=== PATIENT | male | born 1940 | race Caucasian/White ===

== ENCOUNTER 2017-03-12 22:30 | Emergency (ER) | payer MEDICARE, BC ==
[~2017-03-12] VITALS: Ht 175.3 cm; Wt 105.0 kg
[~2017-03-12 22:30] MED LIST: ASPIRIN LOW DOS81 M2 PO; ATROVENT HFA17 MCG IN; CALCIUM + D600 MG PO; FISH OIL1200 M1 PO; HYDROCHLOROT25 MG PO; LIPITOR20 MG OR; LORTAB 7.57.5 MG PO; MECLIZINE12.5 M1 PO; MOTRIN800 MG/TAB PO; MULTI FOR HIM; NITROGLYCERIN; PLAVIX75 MG PO; QUINAPRIL40 MG OR; SIMVASTATIN40 MG PO; SYMBICORT1 AE1 IN; TOPROL XL100 MG OR; TRICOR48 MG OR; VITAMIN B-12500 MCG; VITAMIN C1000 MG PO
[2017-03-12] MEDS ORDERED: DONEPEZIL5 MG PO (23:14)
[2017-03-12] MEDS ORDERED: TAMSULOSIN HCL0.4 MG PO (23:15)
--- NOTE | 2017-03-12 23:19 | NUR ---
BREATHING TREATMENT GIVEN. BREATHING TECH. FOR GOOD DEPOSITION TO THE LUNGS.
[2017-03-12 23:39] LABS: HEMATOCRIT 37.5 % (39.0-50.0); HEMOGLOBIN 12.3 g/dl (14.0-18.0); IMMATURE GRANULOCYTES 0.5 % (0.0-1.0); MEAN CELL VOLUME 89.5 fL CALC (80.0-100.0); MEAN CORPUSCULAR HGB 29.4 pG CALC (26.0-32.0); MEAN CORPUSCULAR HGB CONC 32.8 g/L CALC (32.0-36.0); NEUT# 5.91 thou/uL (1.82-7.42); RED BLOOD COUNT 4.19 mill/uL (4.70-6.10); RED CELL DISTRI WIDTH 13.7 % (11.5-15.5)
[2017-03-12 23:55] LABS: ALBUMIN 4.1 g/dL (3.2-5.0); ALKALINE PHOSPHATASE 100 u/l (38-126); ANION GAP 15 (6-22 (CALC)); BILIRUBIN, TOTAL 0.9 mg/dL (0.0-1.4); BUN 13 mg/dL (8-23); BUN/CREATININE RATIO 15 (12-20 (CALC)); CARBON DIOXIDE 25 mmol/l (22-30); CHLORIDE 108 mmol/l (95-108); CREATININE 0.9 mg/dL (0.7-1.3); GFR > 60 ML/MIN (>=60 (CALC)); GFR FOR AFR.AMER. > 60 ML/MIN (>=60 (CALC)); GLUCOSE 101 mg/dL (82-115); POTASSIUM 4.1 mmol/l (3.5-5.1); SGOT/AST 32 u/l (19-48); SGPT/ALT 58 u/l (11-66); SODIUM 143 mmol/l (137-146); TOTAL PROTEIN 6.7 g/dL (6.3-8.2)
[2017-03-13 00:03] LABS: MYOGLOBIN 61 ng/mL (0 - 121)
[2017-03-13] MEDS ORDERED: MEDDOSEPAK PO (01:03)
[2017-03-13] MEDS ORDERED: ZPAK PO (01:03)
[2017-03-13 01:11] VITALS: BP 150/61
== END 2017-03-13 01:11 | disposition home or self-care (01) ==
LOC: ED 22:30
PROVIDERS: Emergency Medicine
DX: J44.1 Chronic obstructive pulmonary disease with (acute) exacerbation (principal); J06.9 Acute upper respiratory infection, unspecified; R06.02 Shortness of breath; Z95.1 Presence of aortocoronary bypass graft

== ENCOUNTER 2017-05-16 12:21 | Emergency (ER) | payer MEDICARE ==
[~2017-05-16] VITALS: Ht 175.3 cm; Wt 108.0 kg
[~2017-05-16 12:21] MED LIST changes: +DONEPEZIL5 MG PO; +MEDDOSEPAK PO; +TAMSULOSIN HCL0.4 MG PO; -VITAMIN B-12500 MCG; +VITAMIN B-12500 MCG PO; +ZPAK PO
[2017-05-16] MEDS ORDERED: ATROVENT H17 MCG/ACT IN (12:51)
[2017-05-16] MEDS ORDERED: NITROSTAT0.4 MG SL (12:53)
[2017-05-16] MEDS ORDERED: OMEPRAZOLE20 M1 PO (12:57)
[2017-05-16] MEDS ORDERED: ELIQUIS2.5 MG (12:58)
[2017-05-16 13:17] VITALS: BP 139/68
== END 2017-05-16 13:15 | disposition home or self-care (01) ==
LOC: ED 12:21
DX: S90.415A Abrasion, left lesser toe(s), initial encounter (principal); X58.XXXA Exposure to other specified factors, initial encounter; Y93.9 Activity, unspecified; Y92.009 Unspecified place in unspecified non-institutional (private) residence as the place of occurrence of the external cause; Z79.82 Long term (current) use of aspirin

== ENCOUNTER 2018-07-07 11:38 | Observation (INO) | payer MEDICARE ==
[~2018-07-07] VITALS: Ht 175.3 cm; Wt 104.8 kg
[~2018-07-07 11:38] MED LIST changes: +ATROVENT H17 MCG/ACT IN; +COMBIVENT RESPIMAT IN; +DETROL LA4 MG PO; +ELIQUIS2.5 MG PO; +MULTIVITAMI9 PO; +NITROSTAT0.4 MG SL; +OMEPRAZOLE20 M1 PO; +SINGULAIR10 MG PO; +TOLTERODINE TART2 MG PO
[2018-07-07] MEDS ORDERED: MEMANTINE HCL5 MG PO (11:58)
[2018-07-07] MEDS ORDERED: DETROL LA4 MG PO (12:18)
[2018-07-07 12:26] LABS: GFR > 60 ML/MIN (>=60 (CALC)); GFR FOR AFR.AMER. > 60 ML/MIN (>=60 (CALC))
[2018-07-07 12:29] LABS: IMMATURE GRANULOCYTES 0.7 % (0.0-5.0); MEAN CORPUSCULAR HGB 31.9 pG CALC (26.0-32.0); NEUT# 0.52 thou/uL (1.82-7.42); RED BLOOD COUNT 2.85 mill/uL (4.70-6.10); RED CELL DISTRI WIDTH 17.8 % (11.5-15.5)
[2018-07-07 12:48] LABS: ANION GAP 17 (6-22 (CALC)); BUN 19 mg/dL (8-23); BUN/CREATININE RATIO 18 (12-20 (CALC)); CARBON DIOXIDE 25 mmol/l (22-30); CHLORIDE 104 mmol/l (95-108); CREATININE 1.1 mg/dL (0.7-1.3); GFR > 60 ML/MIN (>=60 (CALC)); GFR FOR AFR.AMER. > 60 ML/MIN (>=60 (CALC)); POTASSIUM 4.3 mmol/l (3.5-5.1); SODIUM 142 mmol/l (137-146)
[2018-07-07 13:05] LABS: HEMATOCRIT 26.8 % (39.0-50.0); HEMOGLOBIN 9.1 g/dl (14.0-18.0)
[2018-07-07 16:15] VITALS: BP 146/52
[2018-07-07 19:35] VITALS: BP 127/59
[2018-07-07 23:39] VITALS: BP 115/50
[2018-07-08 04:06] VITALS: BP 123/57
[2018-07-08 06:04] LABS: MEAN CELL VOLUME 92.7 fL CALC (80.0-100.0); MEAN CORPUSCULAR HGB 32.3 pG CALC (26.0-32.0); MEAN CORPUSCULAR HGB CONC 34.8 g/L CALC (32.0-36.0); RED BLOOD COUNT 2.48 mill/uL (4.70-6.10); RED CELL DISTRI WIDTH 17.4 % (11.5-15.5)
[2018-07-08 06:30] LABS: ALBUMIN 3.8 g/dL (3.2-5.0); ALKALINE PHOSPHATASE 79 u/l (38-126); AMYLASE 32 u/l (30-110); ANION GAP 14 (6-22 (CALC)); BILIRUBIN, TOTAL 0.8 mg/dL (0.0-1.4); BUN 20 mg/dL (8-23); BUN/CREATININE RATIO 21 (12-20 (CALC)); CARBON DIOXIDE 26 mmol/l (22-30); CHLORIDE 106 mmol/l (95-108); CREATININE 0.9 mg/dL (0.7-1.3); GFR > 60 ML/MIN (>=60 (CALC)); GFR FOR AFR.AMER. > 60 ML/MIN (>=60 (CALC)); LIPASE 56 u/l (23-300); MAGNESIUM 2.3 mg/dL (1.6-2.3); POTASSIUM 4.5 mmol/l (3.5-5.1); SGOT/AST 22 u/l (19-48); SODIUM 142 mmol/l (137-146); TOTAL PROTEIN 5.9 g/dL (6.3-8.2)
[2018-07-08 06:59] LABS: IMMATURE GRANULOCYTES 0.8 % (0.0-5.0); PLATELET COUNT 30 thou/uL (130-400)
[2018-07-08 07:00] LABS: MANUAL DIFFERENTIAL YES
[2018-07-08 07:02] LABS: BAND 1 % (0-8); HYPOCHROMIA FEW; IMMATURE CELLS 20 %; MICROCYTOSIS FEW; OVALOCYTES FEW; PLATELET ESTIMATE MARKED DECREASE
[2018-07-08 07:36] VITALS: BP 135/56
[2018-07-08 11:56] VITALS: BP 139/57
== END 2018-07-08 14:34 | disposition home or self-care (01) ==
LOC: ED 11:38 → ED-I 14:18 → ED 14:57 → MS2 14:58
PROVIDERS: Family Medicine; ADMIT Internal Medicine Nephrology; ATTEND Internal Medicine Nephrology
DX: R07.89 Other chest pain (principal); J44.9 Chronic obstructive pulmonary disease, unspecified; I10 Essential (primary) hypertension; I25.10 Atherosclerotic heart disease of native coronary artery without angina pectoris; I48.2 Chronic atrial fibrillation; K21.9 Gastro-esophageal reflux disease without esophagitis; E78.5 Hyperlipidemia, unspecified; I25.2 Old myocardial infarction; Z79.01 Long term (current) use of anticoagulants; Z90.2 Acquired absence of lung [part of]; Z85.118 Personal history of other malignant neoplasm of bronchus and lung; Z95.1 Presence of aortocoronary bypass graft; Z95.5 Presence of coronary angioplasty implant and graft; R06.02 Shortness of breath
CPT/HCPCS: Q9967

== ENCOUNTER → 2018-07-15 | Outpatient (REF) | payer MEDICARE ==
[~2018-07-15] MED LIST changes: +MEMANTINE HCL5 MG PO
[2018-07-15 16:04] LABS: HEMATOCRIT 23.5 % (39.0-50.0); MEAN CELL VOLUME 94.8 fL CALC (80.0-100.0); MEAN CORPUSCULAR HGB 32.3 pG CALC (26.0-32.0); RED BLOOD COUNT 2.48 mill/uL (4.70-6.10)
== END | disposition home or self-care (01) ==
LOC: LAB 14:58
PROVIDERS: ATTEND Nurse Practitioner
DX: Z12.12 Encounter for screening for malignant neoplasm of rectum (principal); D64.9 Anemia, unspecified; R53.83 Other fatigue

== ENCOUNTER 2018-08-03 13:32 | Inpatient (IN) | payer MEDICARE ==
[~2018-08-03] VITALS: Ht 175.3 cm; Wt 104.0 kg
[2018-08-03] VITALS (11 sets, daily range): BP systolic 107–142; BP diastolic 44–54
[2018-08-03 14:58] LABS: ANION GAP 16 (6-22 (CALC)); BUN 24 mg/dL (8-23); BUN/CREATININE RATIO 25 (12-20 (CALC)); CARBON DIOXIDE 22 mmol/l (22-30); CHLORIDE 104 mmol/l (95-108); GFR > 60 ML/MIN (>=60 (CALC)); GFR FOR AFR.AMER. > 60 ML/MIN (>=60 (CALC)); POTASSIUM 4.9 mmol/l (3.5-5.1); SODIUM 138 mmol/l (137-146)
[2018-08-03 14:59] LABS: HEMOGLOBIN 5.6 g/dl (14.0-18.0); IMMATURE GRANULOCYTES 3.2 % (0.0-5.0); MEAN CELL VOLUME 91.1 fL CALC (80.0-100.0); MEAN CORPUSCULAR HGB 31.1 pG CALC (26.0-32.0); MEAN CORPUSCULAR HGB CONC 34.1 g/L CALC (32.0-36.0); NEUT# 0.59 thou/uL (1.82-7.42); RED BLOOD COUNT 1.8 mill/uL (4.70-6.10); RED CELL DISTRI WIDTH 16.8 % (11.5-15.5)
[2018-08-03 15:00] LABS: HEMATOCRIT 16.4 % (39.0-50.0)
--- NOTE | 2018-08-03 16:08 | NUR ---
PT ARRIVED ON UNIT AT 1405 VIA WC DIRECT ADMIT, ALERT AND ORIENTED X 4, ORIENTED TO ROOM AND CALL GREEN, SETTLED IN BED. NO C/O PAIN BUT DID C/O OF BEING HUMGRY AND WAS FED LIGHT MEAL. VITAL SIGNS MEASURED AND RECORDED, ALL NEEDS ADDRESSED, SPOUSE AT BEDSIDE, WILL CONTINUE TO MONITOR.
--- NOTE | 2018-08-03 20:00 | NUR ---
PT. RECIEVING PRBC'S WELL; INFUSING @125MLS/HR; NO REACTIONS NOTED; VSS; ASSESSMENT COMPLETED; PT. SOB ON EXERTION, PER PT THIS IN NOT NEW; APPLIED O2 AT THIS TIME; UPDATED ON POC; VERBALIZES UNDERSTANDING; ENCOURAGED TO CALL FOR ANY NEEDS; CALL LIGHT IS IN REACH.
--- NOTE | 2018-08-03 21:40 | NUR ---
1ST UNIT OF PRBC'S FINISHED; VSS; NO REACTIONS NOTED; PT. TOLERATED WELL; UPDATED ON POC; ORDERED LASIX ADMINISTERED;
--- NOTE | 2018-08-03 22:10 | NUR ---
SECOND UNIT OF PRBC'S HUNG; NO REACTIONS NOTED; VSS; THIS COASTAL/[employer]ARB[employer] DEFENSE OFFICER IN AT BEDSIDE FOR INITIAL 15 MINUTES;
--- NOTE | 2018-08-03 23:00 | NUR ---
IV SITE TO RAC IS STARTING TO BECOME PAINFUL; NEW IV STARTED TO CROW X1 ATTEMPT AND PRBC'S MOVED TO NEW SITE; IV FROM RAC REMOVED AND CATHETER TIP INTACT;
[2018-08-04] VITALS (16 sets, daily range): BP systolic 104–144; BP diastolic 44–64
--- NOTE | 2018-08-04 00:58 | NUR ---
2ND UNIT OF PRBC'S FINISHED; NO REACTIONS NOTED; VSS; DENIES NEEDS/PAIN; IV SITE FLUSHED AND NEW BLOOD TUBING HUNG;
--- NOTE | 2018-08-04 01:10 | NUR ---
UNIT OF PLATELETES HUNG PER ORDER; VERIFIED BY 2 NURSES PER PROTOCAL; THIS PROGRAM DIRECTOR GROUP WORK AT BEDSIDE FOR INITIAL 15 MINUTES TO MONITOR;
--- NOTE | 2018-08-04 02:29 | NUR ---
PLATELETES FINISHED; VSS; NO REACTIONS NOTED; IV SITE PATENT AND FLUSHED WITH NS AND SL; DENIES NEEDS/PAIN; CALL LIGHT IS IN REACH; WILL CONTINUE TO MONITOR.
[2018-08-04 05:46] LABS: ALBUMIN 3.7 g/dL (3.2-5.0); ALKALINE PHOSPHATASE 83 u/l (38-126); AMYLASE 30 u/l (30-110); ANION GAP 15 (6-22 (CALC)); BILIRUBIN, TOTAL 1.6 mg/dL (0.0-1.4); BUN 26 mg/dL (8-23); BUN/CREATININE RATIO 25 (12-20 (CALC)); CARBON DIOXIDE 27 mmol/l (22-30); CHLORIDE 104 mmol/l (95-108); CREATININE 1.1 mg/dL (0.7-1.3); GFR FOR AFR.AMER. > 60 ML/MIN (>=60 (CALC)); LIPASE 51 u/l (23-300); MAGNESIUM 2.2 mg/dL (1.6-2.3); POTASSIUM 4.4 mmol/l (3.5-5.1); SGOT/AST 18 u/l (19-48); SODIUM 141 mmol/l (137-146); TOTAL PROTEIN 5.7 g/dL (6.3-8.2)
[2018-08-04 05:59] LABS: GFR > 60 ML/MIN (>=60 (CALC))
--- NOTE | 2018-08-04 06:41 | NUR ---
NOTIFIED DR. FARAH OF CRITICAL LABS THIS AM; NO NEW ORDERS RECEIEVED.
[2018-08-04 06:46] LABS: HEMATOCRIT 20.4 % (39.0-50.0); IMMATURE GRANULOCYTES 2.2 % (0.0-5.0); MEAN CELL VOLUME 91.5 fL CALC (80.0-100.0); MEAN CORPUSCULAR HGB 31.4 pG CALC (26.0-32.0); MEAN CORPUSCULAR HGB CONC 34.3 g/L CALC (32.0-36.0); RED BLOOD COUNT 2.23 mill/uL (4.70-6.10); RED CELL DISTRI WIDTH 15.3 % (11.5-15.5)
[2018-08-04 06:47] LABS: MANUAL DIFFERENTIAL YES; MICROCYTOSIS MARKED; PLATELET COUNT 10 thou/uL (130-400)
[2018-08-04 06:48] LABS: ANISOCYTOSIS MODERATE; OVALOCYTES MODERATE; PLATELET ESTIMATE MARKED DECREASE; TARGET CELLS FEW
--- NOTE | 2018-08-04 07:15 | NUR ---
PT REPORT RECIEVED FROM GABBY BARNES. PT RESTING. NO S/S OF DISTRESS. CALL LIGHT IN REACH. WILL CONTINUE TO MONITOR.
--- NOTE | 2018-08-04 08:25 | NUR ---
PT A/O X3. SPEECH IS CLEAR. RESP EVEN AND UNLABORED. LUNG SOUNDS CLEAR. TELE IN PLACE. BOWEL SOUNDS ACTIVE X4. STRONG RADIAL AND PEDAL PULSES. #22 CROW SL. FLUSHED AND PATENT. SITE APPEARS HEALTHY. PT DENIES ANY PAIN OR NEEDS. POC DISCUSSED. SAFETY PRECAUTIONS IN PLACE. REVERSE ISOLATION. CALL LIGHT IN REACH. WILL CONTINUE TO MONITOR.
--- NOTE | 2018-08-04 11:32 | NUR ---
PT WATCHING TELEVISION. NO C/O PAIN OR NEEDS. CALL LIGHT IN REACH. WILL CONTINUE TO MONITOR
--- NOTE | 2018-08-04 15:24 | NUR ---
FIRST UNIT OF PRBC STARTED. PT TOLERATING WELL. #22 CROW IV SITE APPEARS HEALTHY. WILL CONTINUE TO MONITOR.
--- NOTE | 2018-08-04 16:00 | NUR ---
PT RESTING IN BED. NO C/O PAIN OR NEEDS. CALL LIGHT IN REACH. WILL CONTINUE TO MONITOR
--- NOTE | 2018-08-04 19:00 | NUR ---
RECEIVED REPORT FROM NURSE JESSA, PATIENT HOOKED TO 1ST UNIT OF PRBC INFUSING WELL ON LEFT ARM, NO ALLERGIC REACTION NOTED AT THIS TIME.
--- NOTE | 2018-08-04 21:13 | NUR ---
2ND UNIT OF PRBC STARTED VERIFIED BY ANOTHER RN, PRE V/S TAKEN AND RECORDED. STAYED IN PT'S ROOM FOR THE FIRST 15 MINS.
--- NOTE | 2018-08-04 21:27 | NUR ---
NO SIGNS OF ALLERGIC REACTION NOTED FOR THE FIRST 15 MINS, V/S FOLLWS: BP 133/60 P 57 R 20 TEMP 97.3, O2 STA 99% AT 2LPM.
--- NOTE | 2018-08-04 23:36 | NUR ---
2nd unit of prbc finished, post v/s taken and recorded, pt c/o of itchiness on the forehead, and left arm, no rashes noted, prn benadyl given.
[2018-08-05] VITALS (13 sets, daily range): BP systolic 95–151; BP diastolic 51–65
--- NOTE | 2018-08-05 00:50 | NUR ---
UNABLE TO HUNG PLATELET AT THIS TIME, AVAILABLE PLATELET , WILL NEED TO REORDER NEW PLATELET SPOKE TO UMA FROM LAB.
--- NOTE | 2018-08-05 03:38 | NUR ---
UNIT OF PLATELET HUNG AT 0335 PRE V/S TAKEN AND RECORDED, NO ALLERGIC REACTION NOTED AT THIS TIME, PT CURRENTLY SLEEPING WITH EYES CLOSED NO DISCOMFORTS AT THIS TIME.
--- NOTE | 2018-08-05 03:58 | NUR ---
STAYED WITH THE PATIENT FOR TGHE FIRST 15 MINS NO REACTIONS NOTED AT THIS TIME.
--- NOTE | 2018-08-05 04:41 | NUR ---
PATIENT RESTING IN BED, PLATELETS STILL INFUSING NO ALLERGIC REACTIONS NOTED AT THIS TIME, CALL LIGHT AT REACH.
[2018-08-05 05:16] LABS: ALBUMIN 3.7 g/dL (3.2-5.0); ALKALINE PHOSPHATASE 97 u/l (38-126); ANION GAP 15 (6-22 (CALC)); BILIRUBIN, TOTAL 1.6 mg/dL (0.0-1.4); BUN 26 mg/dL (8-23); BUN/CREATININE RATIO 28 (12-20 (CALC)); CARBON DIOXIDE 27 mmol/l (22-30); CHLORIDE 103 mmol/l (95-108); CREATININE 0.9 mg/dL (0.7-1.3); GFR > 60 ML/MIN (>=60 (CALC)); GFR FOR AFR.AMER. > 60 ML/MIN (>=60 (CALC)); MAGNESIUM 2.3 mg/dL (1.6-2.3); POTASSIUM 4.3 mmol/l (3.5-5.1); SGOT/AST 19 u/l (19-48); SODIUM 141 mmol/l (137-146)
[2018-08-05 05:32] LABS: HEMATOCRIT 23.9 % (39.0-50.0); HEMOGLOBIN 8.2 g/dl (14.0-18.0); IMMATURE GRANULOCYTES 2.1 % (0.0-5.0); MANUAL DIFFERENTIAL YES; MEAN CELL VOLUME 88.2 fL CALC (80.0-100.0); MEAN CORPUSCULAR HGB 30.3 pG CALC (26.0-32.0); MEAN CORPUSCULAR HGB CONC 34.3 g/L CALC (32.0-36.0); PLATELET COUNT 12 thou/uL (130-400); RED BLOOD COUNT 2.71 mill/uL (4.70-6.10); RED CELL DISTRI WIDTH 15.1 % (11.5-15.5)
[2018-08-05 05:37] LABS: BAND 1 % (0-8)
[2018-08-05 05:38] LABS: ANISOCYTOSIS FEW; MICROCYTOSIS MODERATE; OVALOCYTES MODERATE; TEAR DROP CELLS FEW
[2018-08-05 05:39] LABS: PLATELET ESTIMATE MARKED DECREASE
--- NOTE | 2018-08-05 06:24 | NUR ---
RECEIVED A PHONE CALL FROM LAB ABOUT CRITICALLY LOW WBC 1.4 AND PLATELET 12, CALLED DR. FARAH, NO NEW ORDERS MADE AT THIS TIME.
--- NOTE | 2018-08-05 07:28 | NUR ---
REPORT RECEIVED FROM JADE . PT IS SITTING IN THE SIDE OF THE BED WITH NO S/S OF DISTRESS NOTED. CALL LIGHT IN REACH.
--- NOTE | 2018-08-05 08:30 | NUR ---
ASSESSMENT DONE. PT IS A&O X3. PT DENIES ANY PAIN AT THIS TIME. TELE IN PLACE. PT DENIES ANY NEEDS AT THIS TIME. CALL LIGHT IN REACH.
--- NOTE | 2018-08-05 11:01 | NUR ---
DR. MILTON AT BEDSIDE TO ASSESS PT AND DISCUSS POC WITH PT. CALL LIGHT IN REACH.
--- NOTE | 2018-08-05 16:10 | NUR ---
PT IS RESTING IN BED. PT DENIES ANY NEEDS AT THIS TIME. CALL LIGHT IN REACH.
--- NOTE | 2018-08-05 18:22 | NUR ---
EXPLAIN TO PT S/S OF REACTION. PHERESIS PLATELETS STARTED PER ORDER. PT RESTING IN HIS LEFT SIDE AT THIS TIME. CALL LIGHT IN REACH.
--- NOTE | 2018-08-05 19:30 | NUR ---
PATIENT RESTING IN BED AT THIS TIME AWAKE ALERT AND ORIENTEDX3. NEUTROPENIC PRECAUTIONS MAINTAINED. PATIENT IS SLIGHTLY [place]. PATIENT WITH TELE MONITOR IN PLACE. IV SITE TO RIGHT UPPER ARM INTACT AND APPEARS HEALTHY AT THIS TIME. SAFETY PRECAUTIONS REINFORCED. CALL LIGHT IN REACH. WILL CONT TO MONITOR.
[2018-08-05 21:21] LABS: HEMATOCRIT 23.3 % (39.0-50.0); MEAN CELL VOLUME 88.3 fL CALC (80.0-100.0); MEAN CORPUSCULAR HGB 30.3 pG CALC (26.0-32.0); MEAN CORPUSCULAR HGB CONC 34.3 g/L CALC (32.0-36.0); RED BLOOD COUNT 2.64 mill/uL (4.70-6.10); RED CELL DISTRI WIDTH 14.7 % (11.5-15.5)
[2018-08-05 21:23] LABS: IMMATURE GRANULOCYTES 1.6 % (0.0-5.0); NEUT# 0.65 thou/uL (1.82-7.42)
--- NOTE | 2018-08-06 | NUR ---
PATIENT POSITIONED ON HIS RIGHT SIDE WITH EYES CLOSED. APPEARS SLEEPING-RESP ARE EVEN AND UNLABORED. NEUTROPENIC PRECAUTIONS MAINTAINED. TELE MONITOR IN PLACE. CALL LIGHT IN REACH. WILL CONT TO MONITOR.
[2018-08-06 03:49] VITALS: BP 106/48
[2018-08-06 05:46] LABS: ALBUMIN 3.7 g/dL (3.2-5.0); ALKALINE PHOSPHATASE 100 u/l (38-126); ANION GAP 13 (6-22 (CALC)); BILIRUBIN, TOTAL 1.4 mg/dL (0.0-1.4); BUN 23 mg/dL (8-23); BUN/CREATININE RATIO 25 (12-20 (CALC)); CARBON DIOXIDE 27 mmol/l (22-30); CHLORIDE 106 mmol/l (95-108); CREATININE 0.9 mg/dL (0.7-1.3); GFR > 60 ML/MIN (>=60 (CALC)); GFR FOR AFR.AMER. > 60 ML/MIN (>=60 (CALC)); MAGNESIUM 2.3 mg/dL (1.6-2.3); POTASSIUM 4.6 mmol/l (3.5-5.1); SGOT/AST 18 u/l (19-48); SODIUM 141 mmol/l (137-146); TOTAL PROTEIN 5.8 g/dL (6.3-8.2)
[2018-08-06 05:49] LABS: HEMATOCRIT 24.7 % (39.0-50.0); HEMOGLOBIN 8.4 g/dl (14.0-18.0); MEAN CELL VOLUME 89.2 fL CALC (80.0-100.0); MEAN CORPUSCULAR HGB 30.3 pG CALC (26.0-32.0); PLATELET COUNT 13 thou/uL (130-400); RED BLOOD COUNT 2.77 mill/uL (4.70-6.10); RED CELL DISTRI WIDTH 14.6 % (11.5-15.5)
--- NOTE | 2018-08-06 05:50 | NUR ---
RECIEVED LAB RESULTS FROM NIRMALA IN THE LAB. AWARE OF TRENDS. PATIENT RESTING IN BED-APPEARS SLEEPING AT THIS TIME. TELE MONITOR IN PLACE. O2 VIA N BRIANNE CANNULA IN PLACE. NEUTRApenic precautions MAINTAINED. CALL LIGHT IN REACH. WILL CONT TO MONITOR.
[2018-08-06 05:52] LABS: MANUAL DIFFERENTIAL YES
[2018-08-06 06:19] LABS: IMMATURE CELLS 1 %
[2018-08-06 06:21] LABS: HYPOCHROMIA FEW; MICROCYTOSIS MODERATE; PLATELET ESTIMATE MARKED DECREASE; POIKILOCYTOSIS FEW
--- NOTE | 2018-08-06 07:40 | NUR ---
ED CALLED STATED PT PULSE PER TELE READING 30-41. PT IS SITTING IN THE SIDE OF THE BED WITH NO S/S OF DISTRESS NOTED. VS OBTAIN P-62 BP 127/57. ASSESSMENT DONE. PT IS A&O X3. PT DENIES ANY PAIN AT THIS TIME. TELE IN PLACE. 02 AT 2L VIA LA. PT DENIES ANY NEEDS AT THIS TIME. CALL LIGHT IN REACH.
[2018-08-06 08:00] VITALS: BP 127/57
--- NOTE | 2018-08-06 09:58 | NUR ---
ED CALLED STATED PT IN A.FIB PER TELE . ASKED PT IF HE HAD A HX OF A.FIB. PT STATED NO. EKG ORDER. CALLED DR. MILTON RE: PT PULSE WAS READING IN THE 30- AND WAS RECHECK READING 50-62. ALSO THAT ED CALLED THAT PT IS NOW READING A.FIB. TOLD I ORDER A EKG. NO NEW ORDERS RECEIVED AT THIS TIME.
[2018-08-06 11:48] VITALS: BP 130/65
--- NOTE | 2018-08-06 12:30 | NUR ---
PT IS SITTING IN RECLINER WITH NO S/S OF DISTRESS NOTED. IN ROOM. PT DENIES ANY NEEDS AT THIS TIME. CALL LIGHT IN REACH.
--- NOTE | 2018-08-06 13:15 | NUR ---
DR. MILTON AT BEDSIDE TO ASSESS PT. PER SHE STATED THAT PT DOES HAVE A HX OF A.FIB.
[2018-08-06 15:39] VITALS: BP 128/63
--- NOTE | 2018-08-06 16:03 | NUR ---
PT IS RESTING IN BED WITH NO S/S OF DISTRESS NOTED. PT DENIES ANY NEEDS AT THIS TIME. CALL LIGHT IN REACH.
[2018-08-06] MEDS ORDERED: TRELEGY ELLIPTA1 AER IN (16:22)
[2018-08-06] MEDS ORDERED: ALBUTEROL SUL0.083 % NEB (16:23)
[2018-08-06] MEDS ORDERED: ZINC50 MG PO (16:24)
[2018-08-06] MEDS ORDERED: SUPER B COM2 PO (16:25)
[2018-08-06] MEDS ORDERED: D31000 UNIT PO (16:25)
[2018-08-06] MEDS ORDERED: ZYLOPRIM100 MG PO (16:26)
[2018-08-06] MEDS ORDERED: VENCLEXTA10 MG (16:27)
[2018-08-06] MEDS ORDERED: ONDANSETRON ODT8 MG PO (16:27)
[2018-08-06 19:25] VITALS: BP 119/64
--- NOTE | 2018-08-06 19:30 | NUR ---
PATIENT RESTING IN BED AT THIS TIME-AWAKE ALERT AND ORIENTEDX3-SLIGHTLY [place]. NEUTROPENIC PRECAUTIONS MAINTAINED. PATENT WITH TELE MONITOR IN PLACE. IV SITE TO LEFT UPPER ARM INTACT AND APPEARS HELATHY AT THIS TIME. O2 VIA NASAL CANNULA IN PLACE. SAFETY PRECAUTIONS REINFORCED. CALL LIGHT IN REACH. WILL CONT TO MONITOR.
--- NOTE | 2018-08-07 00:20 | NUR ---
PATIENT RESTING IN BED WITH O2 VIA NASAL CANNULA IN PLACE-POSITIONED ON LEFT SIDE WITH EYES CLOSED. RESP ARE EVEN AND UNLABORED. TELE MONITOR IN PLACE. NEUTROPENIC PRECAUTIONS REINFORCED. CALL LIGHT IN REACH. WILL CONT TO MONITOR.
[2018-08-07 00:29] VITALS: BP 105/54
[2018-08-07 04:03] VITALS: BP 120/54
--- NOTE | 2018-08-07 05:15 | NUR ---
PATIENT CALLED FOR ASSIST. STATES THAT HE HAS A BLOODY NOSE. RESPONDED TO ROOM TO FIND THE PATIENT WITH BLOODY NOSE FROM LEFT NARE. WHEN ASKED WHAT HAPPENED PATIENT STATES THAT HE BLEW HIS NOSE HARD AND IT STARTED TO BLEED. PATIENT EDUCATED REGUARDING LOW PLATLET COUNTS SECONDARY TO CHEMO AND THE INCREASE RISK OF BLEEDING DUE TO LOW CPOUNTS. COLD PACKS APPLIED WO LEFT CHEEK AND NOSE. PATIENT SITTING UP IN BED AT THIS TIME. CALL LIGHT IN REACH. WILL CONT TO MONITOR.
[2018-08-07 05:59] LABS: ALBUMIN 3.6 g/dL (3.2-5.0); ALKALINE PHOSPHATASE 101 u/l (38-126); ANION GAP 13 (6-22 (CALC)); BILIRUBIN, TOTAL 1.6 mg/dL (0.0-1.4); BUN 26 mg/dL (8-23); BUN/CREATININE RATIO 27 (12-20 (CALC)); CARBON DIOXIDE 28 mmol/l (22-30); CHLORIDE 104 mmol/l (95-108); GFR > 60 ML/MIN (>=60 (CALC)); GFR FOR AFR.AMER. > 60 ML/MIN (>=60 (CALC)); MAGNESIUM 2.3 mg/dL (1.6-2.3); POTASSIUM 4.4 mmol/l (3.5-5.1); SGOT/AST 17 u/l (19-48); SODIUM 141 mmol/l (137-146); TOTAL PROTEIN 5.8 g/dL (6.3-8.2)
[2018-08-07 06:52] LABS: HEMATOCRIT 22.6 % (39.0-50.0); HEMOGLOBIN 7.8 g/dl (14.0-18.0); IMMATURE GRANULOCYTES 0.6 % (0.0-5.0); MEAN CELL VOLUME 89.3 fL CALC (80.0-100.0); MEAN CORPUSCULAR HGB 30.8 pG CALC (26.0-32.0); MEAN CORPUSCULAR HGB CONC 34.5 g/L CALC (32.0-36.0); PLATELET COUNT 9 thou/uL (130-400); RED BLOOD COUNT 2.53 mill/uL (4.70-6.10); RED CELL DISTRI WIDTH 14.3 % (11.5-15.5)
[2018-08-07 06:53] LABS: BAND 2 % (0-8); MANUAL DIFFERENTIAL YES
[2018-08-07 06:54] LABS: ANISOCYTOSIS FEW; HYPOCHROMIA FEW; IMMATURE CELLS 1 %; MICROCYTOSIS FEW; PLATELET ESTIMATE MARKED DECREASE
--- NOTE | 2018-08-07 07:20 | NUR ---
PT REPORT RECIEVED FROM GABBY ROBIN. PT RESTING IN BED. GUAZE TO PT NOSTRIL IN PLACE. GUAZE ALMOST SATURATED W/ BLOODY DRAINAGE. REINFORCE W/ PRESSURE APPLIED. CALL LIGHT IN REACH. WILL CONTINUE TO MONITOR.
[2018-08-07 08:18] VITALS: BP 157/63
--- NOTE | 2018-08-07 08:18 | NUR ---
UPON ENTERING ROOM, PT UP AT SIDE OF BED EATING BREAKFAST. PT REMOVED GUAZE FROM NOSE. BLEEDING APPEARS LESS AT THIS TIME BUT NEW GAUZE, PRESSURE AND ICE PACK APPLIED. ENCOURAGED PT TO HAVE CONSTANT PRESSURE ON NOSE AND LEAVE GUAZE IN PLACE. PT STATES UNDERSTANDING. PT A/O X3. SPEECH IS CLEAR. RESP EVEN AND UNLABORED. LUNG SOUNDS CLEAR. BOWEL SOUNDS ACTIVE X4. STRONG RADIAL AND PEDAL PULSES. #22 CROW SL. FLUSHED AND PATENT. SITE APPEARS HEALTHY. PT DENIES ANY PAIN OR NEEDS. POC DISCUSSED. SAFETY PRECAUTIONS IN PLACE. CALL LIGHT IN REACH. WILL CONTINUE TO MONITOR.
--- NOTE | 2018-08-07 10:58 | NUR ---
PT HAVING EXCESS BLEEDING FROM NOSE; SEVERAL BLOOD CLOTS NOTED. NEW GUAZE AND ICE APPLIED TO PT. MD CALLED BY GABBY JERRY. STATES HE WILL BE OVER TO SEE PT. WILL CONTINUE TO MONITOR.
[2018-08-07 11:00] VITALS: BP 138/95
--- NOTE | 2018-08-07 11:19 | NUR ---
PT BLEEDING PROFUSELY FROM LEFT NOSTRIL SINCE NURSE EVALUATED AT BEGINNIG OF SHIFT, SHE TRIED ALL INTERVENTIONS SHE KNOWS BUT BELLEING HAS NOT SUBSIDED OR EVEN SLOWED. DR MILTON CONTACTED IN ICU APPROXIMATELY 45-50 MINUTES AGO AND RESPONDED HE WOULD BE RIGHT THERE, HE JUST ARRIVED ON UNIT @ 1117, WHEN ASKED BY STOCK LAYER IF HE WILL SEE 280 FIRST HE SHRUGGED OFF QUESTION STATING HE WILL DO WHAT HE HAS TO DO FIRST. I APPROACHED HIM IN DICTATION ROOM AND EXPLAINED THE SEVERITY OF PT'S CONDITION TO HEM. HE TOLE ME TO JUST STOP THE BLEEDING, I EXPLAINED ALL THAT NURSE HAS BEEN DOING SINCE SHE CAME ON THIS AM AND INQUIRED OF HIM WHAT MORE ARE WE SUPPOSED TO DO? I ALSO SUGGESTED TO HIM TO SEE PT ARNULFO SO HE CAN OBSERVE WHAT WAS REPORTED TO HIM.
--- NOTE | 2018-08-07 11:25 | NUR ---
IN TO TALK W/ PT. APPLIED AEROSOL APPLICATOR AND GUCODY- CONSTANT PRESSURE TO PT NOSE. ORDERS FOR TRANSFER TO [facility]. STAT ORDER FOR PLATELETS IN PLACE. WILL CONTINUE TO MONITOR.
--- NOTE | 2018-08-07 12:20 | NUR ---
BLEEDING TO LT NOSTRIL HAS DECREASED SIGNIFICANTLY. PT SITTING IN RECLINER TALKING W/ . NO C/O AT THIS TIME. TELE IN PLACE. CALL LIGHT IN REACH. WILL CONTINUE TO MONITOR.
--- NOTE | 2018-08-07 13:38 | NUR ---
REPORT GIVEN TO GABBY HOROWITZ AT [facility]
--- NOTE | 2018-08-07 14:29 | NUR ---
[facility] UP TO TRANSPORT PT TO [facility]
--- NOTE | 2018-08-07 14:30 | NUR ---
Discharge instructions given. Patient verbalizes understanding of same. Discharged in stable condition via Medical Transport to *Other with *Other. All belongings sent with pt.
== END 2018-08-07 14:30 | disposition short-term general hospital (02) | DRG 809 ==
LOC: MS2 13:32
PROVIDERS: Internal Medicine; ADMIT Internal Medicine; ATTEND Internal Medicine Nephrology
PROC: 30233N1 Transfusion of Nonautologous Red Blood Cells into Peripheral Vein, Percutaneous Approach (ICD-10-PCS; principal; 2018-08-03)
PROC: 30233N1 Transfusion of Nonautologous Red Blood Cells into Peripheral Vein, Percutaneous Approach (ICD-10-PCS; 2018-08-03)
PROC: 30233N1 Transfusion of Nonautologous Red Blood Cells into Peripheral Vein, Percutaneous Approach (ICD-10-PCS; 2018-08-04)
PROC: 30233N1 Transfusion of Nonautologous Red Blood Cells into Peripheral Vein, Percutaneous Approach (ICD-10-PCS; 2018-08-04)
PROC: 30233R1 Transfusion of Nonautologous Platelets into Peripheral Vein, Percutaneous Approach (ICD-10-PCS; 2018-08-04)
PROC: 30233R1 Transfusion of Nonautologous Platelets into Peripheral Vein, Percutaneous Approach (ICD-10-PCS; 2018-08-05)
PROC: 30233R1 Transfusion of Nonautologous Platelets into Peripheral Vein, Percutaneous Approach (ICD-10-PCS; 2018-08-05)
PROC: 093K7ZZ Control Bleeding in Nasal Mucosa and Soft Tissue, Via Natural or Artificial Opening (ICD-10-PCS; 2018-08-07)
DX: D61.810 Antineoplastic chemotherapy induced pancytopenia (principal); C95.00 Acute leukemia of unspecified cell type not having achieved remission; T45.1X5A Adverse effect of antineoplastic and immunosuppressive drugs, initial encounter; J44.9 Chronic obstructive pulmonary disease, unspecified; I10 Essential (primary) hypertension; K21.9 Gastro-esophageal reflux disease without esophagitis; M19.90 Unspecified osteoarthritis, unspecified site; I25.10 Atherosclerotic heart disease of native coronary artery without angina pectoris; Z95.5 Presence of coronary angioplasty implant and graft; Z85.118 Personal history of other malignant neoplasm of bronchus and lung; Z90.2 Acquired absence of lung [part of]; I49.5 Sick sinus syndrome; I48.0 Paroxysmal atrial fibrillation; R04.0 Epistaxis
CPT/HCPCS: G0378; P9016; P9034

== ENCOUNTER 2018-10-05 10:09 | Emergency (ER) | payer MEDICARE ==
[~2018-10-05] VITALS: Ht 175.3 cm; Wt 105.0 kg
[~2018-10-05 10:09] MED LIST changes: +ALBUTEROL SUL0.083 % NEB; +D31000 UNIT PO; +ONDANSETRON ODT8 MG PO; +SUPER B COM2 PO; +TRELEGY ELLIPTA1 AER IN; +VENCLEXTA10 MG; +ZINC50 MG PO; +ZYLOPRIM100 MG PO
[2018-10-05 11:09] LABS: HEMATOCRIT 26.1 % (39.0-50.0); HEMOGLOBIN 8.6 g/dl (14.0-18.0); IMMATURE GRANULOCYTES 8.9 % (0.0-5.0); MEAN CELL VOLUME 94.6 fL CALC (80.0-100.0); MEAN CORPUSCULAR HGB 31.2 pG CALC (26.0-32.0); PLATELET COUNT 177 thou/uL (130-400); RED BLOOD COUNT 2.76 mill/uL (4.70-6.10); RED CELL DISTRI WIDTH 18.4 % (11.5-15.5)
[2018-10-05 11:23] LABS: ALBUMIN 3.6 g/dL (3.2-5.0); ALKALINE PHOSPHATASE 100 u/l (38-126); ANION GAP 14 (6-22 (CALC)); BUN 15 mg/dL (8-23); BUN/CREATININE RATIO 19 (12-20 (CALC)); CARBON DIOXIDE 24 mmol/l (22-30); CHLORIDE 102 mmol/l (95-108); CREATININE 0.8 mg/dL (0.7-1.3); GFR > 60 ML/MIN (>=60 (CALC)); GFR FOR AFR.AMER. > 60 ML/MIN (>=60 (CALC)); POTASSIUM 3.7 mmol/l (3.5-5.1); SGOT/AST 20 u/l (19-48); SODIUM 136 mmol/l (137-146)
[2018-10-05 11:40] LABS: BAND 10 % (0-8); MANUAL DIFFERENTIAL YES
[2018-10-05 13:19] VITALS: BP 136/82
== END 2018-10-05 13:28 ==
LOC: ED 10:09
PROVIDERS: Emergency Medicine
DX: R53.1 Weakness (principal); R42 Dizziness and giddiness; R50.9 Fever, unspecified; J18.9 Pneumonia, unspecified organism; D70.9 Neutropenia, unspecified; Z95.1 Presence of aortocoronary bypass graft; Z95.5 Presence of coronary angioplasty implant and graft

== ENCOUNTER 2018-10-11 11:03 | Inpatient (IN) | payer MEDICARE ==
[~2018-10-11] VITALS: Ht 175.3 cm; Wt 85.0 kg
[2018-10-11 12:18] LABS: HEMATOCRIT 24.9 % (39.0-50.0); HEMOGLOBIN 8.1 g/dl (14.0-18.0); IMMATURE GRANULOCYTES 1.8 % (0.0-5.0); MEAN CELL VOLUME 97.3 fL CALC (80.0-100.0); MEAN CORPUSCULAR HGB 31.6 pG CALC (26.0-32.0); MEAN CORPUSCULAR HGB CONC 32.5 g/L CALC (32.0-36.0); NEUT# 1.14 thou/uL (1.82-7.42); RED BLOOD COUNT 2.56 mill/uL (4.70-6.10); RED CELL DISTRI WIDTH 17.7 % (11.5-15.5)
[2018-10-11 12:33] LABS: ACT PARTIAL THROMBO TIME 40.9 SECONDS (20.0-32.5); ALBUMIN 3.8 g/dL (3.2-5.0); ALKALINE PHOSPHATASE 98 u/l (38-126); ANION GAP 14 (6-22 (CALC)); BUN 12 mg/dL (8-23); BUN/CREATININE RATIO 16 (12-20 (CALC)); CARBON DIOXIDE 25 mmol/l (22-30); CHLORIDE 106 mmol/l (95-108); CREATININE 0.8 mg/dL (0.7-1.3); GFR > 60 ML/MIN (>=60 (CALC)); GFR FOR AFR.AMER. > 60 ML/MIN (>=60 (CALC)); INTERNATIONAL NORMALIZED RATIO 1.1 RATIO (0.7-1.3); LIPASE 31 u/l (23-300); POTASSIUM 3.8 mmol/l (3.5-5.1); PROTHROMBIN TIME 11.1 SECONDS (9.0-12.5); SGOT/AST 22 u/l (19-48); SODIUM 141 mmol/l (137-146); TOTAL PROTEIN 6.7 g/dL (6.3-8.2)
[2018-10-11 12:35] LABS: BILIRUBIN, TOTAL 0.9 mg/dL (0.0-1.4)
[2018-10-11 12:45] LABS: MYOGLOBIN 40 ng/mL (0 - 121)
[2018-10-11 14:58] LABS: URINE BILIRUBIN - DIPSTICK NEGATIVE (NEGATIVE); URINE BLOOD DIPSTICK NEGATIVE (NEGATIVE); URINE COLOR YELLOW; URINE GLUCOSE - DIPSTICK NEGATIVE (NEGATIVE); URINE KETONE NEGATIVE (NEGATIVE); URINE LEUK ESTERASE NEGATIVE (NEGATIVE); URINE NITRITE - DIPSTICK NEGATIVE (Negative); URINE PROTEIN - DIPSTICK TRACE mg/dL (NEG-TRACE); URINE UROBILINOGEN - DIPSTICK 0.2 E.U./dL (0.2)
[2018-10-11 17:55] VITALS: BP 191/70
[2018-10-11 21:52] VITALS: BP 156/72
[2018-10-11 23:45] VITALS: BP 143/57
[2018-10-11 23:49] VITALS: BP 143/57
[2018-10-12] VITALS (15 sets, daily range): BP systolic 105–168; BP diastolic 48–64
[2018-10-12 05:21] LABS: HEMATOCRIT 23.2 % (39.0-50.0); HEMOGLOBIN 7.5 g/dl (14.0-18.0); IMMATURE GRANULOCYTES 1.8 % (0.0-5.0); MEAN CELL VOLUME 95.9 fL CALC (80.0-100.0); MEAN CORPUSCULAR HGB CONC 32.3 g/L CALC (32.0-36.0); NEUT# 1.01 thou/uL (1.82-7.42); RED BLOOD COUNT 2.42 mill/uL (4.70-6.10); RED CELL DISTRI WIDTH 17.4 % (11.5-15.5)
[2018-10-12 05:44] LABS: ALBUMIN 3.1 g/dL (3.2-5.0); ALKALINE PHOSPHATASE 87 u/l (38-126); AMYLASE < 30 u/l (30-110); ANION GAP 12 (6-22 (CALC)); BILIRUBIN, TOTAL 0.7 mg/dL (0.0-1.4); BUN 8 mg/dL (8-23); BUN/CREATININE RATIO 12 (12-20 (CALC)); CARBON DIOXIDE 24 mmol/l (22-30); CHLORIDE 109 mmol/l (95-108); CREATININE 0.6 mg/dL (0.7-1.3); GFR > 60 ML/MIN (>=60 (CALC)); GFR FOR AFR.AMER. > 60 ML/MIN (>=60 (CALC)); LIPASE 29 u/l (23-300); POTASSIUM 3.6 mmol/l (3.5-5.1); SGOT/AST 13 u/l (19-48); SODIUM 141 mmol/l (137-146); TOTAL PROTEIN 5.4 g/dL (6.3-8.2)
[2018-10-13] VITALS (15 sets, daily range): BP systolic 136–184; BP diastolic 52–83
[2018-10-13 05:01] LABS: HEMATOCRIT 28.6 % (39.0-50.0); IMMATURE GRANULOCYTES 2.1 % (0.0-5.0); MEAN CELL VOLUME 92.6 fL CALC (80.0-100.0); MEAN CORPUSCULAR HGB 31.1 pG CALC (26.0-32.0); MEAN CORPUSCULAR HGB CONC 33.6 g/L CALC (32.0-36.0); NEUT# 1.57 thou/uL (1.82-7.42); RED BLOOD COUNT 3.09 mill/uL (4.70-6.10); RED CELL DISTRI WIDTH 18.4 % (11.5-15.5)
[2018-10-13 05:02] LABS: HEMOGLOBIN 9.6 g/dl (14.0-18.0)
[2018-10-13 05:34] LABS: ALBUMIN 3.4 g/dL (3.2-5.0); ALKALINE PHOSPHATASE 91 u/l (38-126); ANION GAP 15 (6-22 (CALC)); BILIRUBIN, TOTAL 2.5 mg/dL (0.0-1.4); BUN 7 mg/dL (8-23); BUN/CREATININE RATIO 12 (12-20 (CALC)); CARBON DIOXIDE 24 mmol/l (22-30); CHLORIDE 105 mmol/l (95-108); CREATININE 0.6 mg/dL (0.7-1.3); GFR > 60 ML/MIN (>=60 (CALC)); GFR FOR AFR.AMER. > 60 ML/MIN (>=60 (CALC)); POTASSIUM 3.7 mmol/l (3.5-5.1); SGOT/AST 15 u/l (19-48); SODIUM 140 mmol/l (137-146); TOTAL PROTEIN 5.8 g/dL (6.3-8.2)
[2018-10-14 03:09] VITALS: BP 154/60
[2018-10-14 05:23] LABS: HEMATOCRIT 30.1 % (39.0-50.0); HEMOGLOBIN 9.9 g/dl (14.0-18.0); IMMATURE GRANULOCYTES 0.9 % (0.0-5.0); MEAN CELL VOLUME 94.4 fL CALC (80.0-100.0); MEAN CORPUSCULAR HGB CONC 32.9 g/L CALC (32.0-36.0); NEUT# 2.88 thou/uL (1.82-7.42); RED BLOOD COUNT 3.19 mill/uL (4.70-6.10); RED CELL DISTRI WIDTH 18.4 % (11.5-15.5)
[2018-10-14 05:30] LABS: ALBUMIN 3.4 g/dL (3.2-5.0); ALKALINE PHOSPHATASE 95 u/l (38-126); ANION GAP 14 (6-22 (CALC)); BUN 8 mg/dL (8-23); BUN/CREATININE RATIO 12 (12-20 (CALC)); CARBON DIOXIDE 25 mmol/l (22-30); CHLORIDE 104 mmol/l (95-108); CREATININE 0.6 mg/dL (0.7-1.3); GFR > 60 ML/MIN (>=60 (CALC)); GFR FOR AFR.AMER. > 60 ML/MIN (>=60 (CALC)); SGOT/AST 18 u/l (19-48); SODIUM 138 mmol/l (137-146); TOTAL PROTEIN 5.9 g/dL (6.3-8.2)
[2018-10-14 05:33] LABS: BILIRUBIN, TOTAL 1.2 mg/dL (0.0-1.4)
[2018-10-14 08:37] VITALS: BP 140/65
[2018-10-14 10:41] VITALS: BP 148/67
== END 2018-10-14 15:09 | disposition home health service (06) | DRG 809 ==
LOC: ED 11:03 → ED-I 16:31 → ED 16:55 → MS2 16:56
PROVIDERS: ADMIT Internal Medicine Nephrology; ATTEND Internal Medicine Nephrology
PROC: 30233N1 Transfusion of Nonautologous Red Blood Cells into Peripheral Vein, Percutaneous Approach (ICD-10-PCS; principal; 2018-10-12)
PROC: 30233N1 Transfusion of Nonautologous Red Blood Cells into Peripheral Vein, Percutaneous Approach (ICD-10-PCS; 2018-10-12)
DX: D61.810 Antineoplastic chemotherapy induced pancytopenia (principal); C34.90 Malignant neoplasm of unspecified part of unspecified bronchus or lung; I95.2 Hypotension due to drugs; T44.7X5A Adverse effect of beta-adrenoreceptor antagonists, initial encounter; T45.1X5A Adverse effect of antineoplastic and immunosuppressive drugs, initial encounter; I25.10 Atherosclerotic heart disease of native coronary artery without angina pectoris; I10 Essential (primary) hypertension; J44.9 Chronic obstructive pulmonary disease, unspecified; K21.9 Gastro-esophageal reflux disease without esophagitis; E78.5 Hyperlipidemia, unspecified; Z95.1 Presence of aortocoronary bypass graft; Z95.5 Presence of coronary angioplasty implant and graft; Z79.01 Long term (current) use of anticoagulants; Z79.899 Other long term (current) drug therapy
CPT/HCPCS: G0378; P9016